=== PATIENT | male | born 1985 | race Caucasian/White ===

== ENCOUNTER 2021-10-02 08:00 | Outpatient (CLI) | payer BC ==
--- NOTE | 2021-10-02 10:37 | XRAY Report ---
PROCEDURE: Foot 3 View BILAT INDICATIONS: METATARSALGIA TECHNIQUE: 3 views of each foot were acquired. COMPARISON: None. FINDINGS: Bones: No acute fractures or dislocations. No suspicious bony lesions. Postsurgical changes are se en in the included portion of the left distal tibia and fibula. Soft tissues: No suspicious soft tissue calcifications. IMPRESSION: No acute osseous abnormality. No significant arthritic changes. If symptoms persist or there is phyllis nued clinical concern, further evaluation with MRI or CT may be helpful. Reviewed by: Chaitanya Dias MD on 10/02/2021 10:35 AM PDT Approved by: Chaitanya Dias MD on 10/02/2021 10:35 AM PDT Station ID: [id number]
== END 2021-10-02 23:59 | disposition home or self-care (01) ==
LOC: DI 08:00
PROVIDERS: ATTEND Podiatrist
DX: M77.42 Metatarsalgia, left foot (principal); M77.41 Metatarsalgia, right foot

== ENCOUNTER 2021-11-08 06:28 | Outpatient (CLI) | payer BC, OTHER ==
--- NOTE | 2021-11-08 10:19 | MRI Report ---
PROCEDURE: Foot RT W/O INDICATIONS: CHRONIC RIGHT FOOT PAIN TECHNIQUE: Noncontrast sagittal , axial, and coronal T1 spin echo and T2 fast spin echo with fat saturation thro ugh the forefoot. COMPARISON: The radiographs 10/03/2019. FINDINGS: Image quality: Excellent. Bones and joints: No bone marrow contusions or metatarsal stress fractures. The sesamoid bones appe ar in expected positions, without internal edema. No metatarsophalangeal joint degeneration. No int raosseous lesions. Mild degenerative spurring of the dorsal talonavicular joint. Minimal first metat arsophalangeal osteoarthrosis. Soft tissues: A skin marker is seen at the plantar medial aspect of the forefoot at the level of the first metatarsal shaft. Focal thickening of the plantar fascia is seen just proximal to the sesamoids measuring approximately 1.4 x 0.8 x 1.3 cm. This lesion is located deep to the flexor pollicis longu s tendon. The remainder of the visualized plantar fascia is intact. The visualized plantar foot muscl es demonstrate normal signal and bulk. Visualized flexor and extensor tendons appear intact, without tenosynovitis. No interdigital mass. A small ganglion cyst is seen at the dorsal medial aspect of th e navicular cuneiform articulation measuring approximately 1.3 x 0.5 x 1.0 cm. Sagittal images demons trate no evidence for plantar plate tears. 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 Reviewed by: Chaitanya Dias MD on 11/08/2021 10:18 AM PDT Approved by: Chaitanya Dias MD on 11/08/2021 10:18 AM PDT Station ID: [id number]
== END 2021-11-08 06:29 | disposition home or self-care (01) ==
LOC: DI 06:28
PROVIDERS: ATTEND Podiatrist
DX: R93.6 Abnormal findings on diagnostic imaging of limbs (principal); R93.89 Abnormal findings on diagnostic imaging of other specified body structures

== ENCOUNTER 2023-05-02 07:09 | Outpatient (CLI) | payer OTHER ==
--- NOTE | 2023-05-02 13:11 | XRAY Report ---
PROCEDURE: Lumbar Spine Complete INDICATIONS: LOW BACK PAIN TECHNIQUE: 3 views of the lumbar spine were acquired. COMPARISON: None. FINDINGS: Bones: 5 [id number] vertebrae are present. There is normal bony alignment. No vertebral body compression fractures. No suspicious bony lesions. Soft tissues: Overlying bowel gas pattern is normal. No suspicious soft tissue calcifications. IMPRESSION: No significant osseous abnormality. If clinically indicated MRI could be considered for further evaluation. Reviewed by: Sheldon Kyle MD on 05/02/2023 1:10 PM PDT Approved by: Sheldon Kyle MD on 05/02/2023 1:10 PM PDT Station ID: [id number]
== END 2023-05-02 07:10 | disposition home or self-care (01) ==
LOC: DI.S 07:09
PROVIDERS: ATTEND Nurse Practitioner Acute Care
DX: M54.50 Low back pain, unspecified (principal)